=== PATIENT | male | born 1960 | race Caucasian/White ===

== ENCOUNTER 2022-05-25 07:02 | Outpatient (CLI) | payer OTHER, SELFPAY ==
--- NOTE | 2022-05-25 07:25 | MR_ITS ---
WS: [id number] MRI ABDOMEN with and without CONTRAST. COMPARISON: None Multiplanar, multisequence imaging is performed with and without contrast. MultiHance 17 mL. History: As per history patient has a known adrenal mass. No studies are available for comparison. Well-circumscribed LEFT adrenal mass measures 2.4 x 2.1 cm. Mass is indeterminate signal on the T2-we ighted sequences. Mild heterogeneity on the breath-hold thin axial T2 images. On the out of phase vikki ges there is complete dropout loss of signal indicating a benign adenoma. There is enhancement diffus harinder throughout the adenoma. The RIGHT adrenal gland is normal. Liver is normal size. There are several cysts within the liver. The largest towards the central liver measures 1.7 x 1.1 cm. There is an additional cyst towards the superior LEFT lobe of the liver which is incompletely visualized and included on this examination of the adrenal glands. No solid mass sharmaine ntified. No enhancing lesions. The visualized spleen is negative. No renal mass. There is no ascites. No adenopathy. MR/MR abdomen wo/w con* [id number] IMPRESSION: 1. LEFT adrenal mass 2.4 x 2.1 cm consistent with an adenoma. 2. Central hepatic cyst measures 1.7 x 1.1 cm. There is probably an additional cyst superiorly in the LEFT lobe of liver which is incompletely included on al l sequences.
[2022-05-25] MEDS: gadobenate dimeglumine 20 mL vial IV (08:18)
== END 2022-05-25 07:03 | disposition home or self-care (01) ==
PROVIDERS: PCP Nurse Practitioner; Visit Provider Nurse Practitioner
DX: D49.7 Neoplasm of unspecified behavior of endocrine glands and other parts of nervous system (principal); K76.89 Other specified diseases of liver
CPT/HCPCS: 74183; A9577